=== PATIENT | female | born 1975 | race Caucasian/White ===

== ENCOUNTER 2023-05-24 08:31 | Emergency (ER) | payer SELFPAY ==
[2023-05-24] MEDS ORDERED: Ketorolac Tromethamine 30 MG/ML VIAL ONE (09:01)
[2023-05-24] MEDS ORDERED: Ondansetron PF 4 MG/2 ML Vial ONE (09:01)
[2023-05-24 09:40] LABS: #Basophils 0.1 10x3/uL (0.0-0.2); #Monocytes 1.6 10x3/uL (0.0-1.1); #Neutrophils 18.2 10x3/uL (1.5-8.4); %Basophils 0.4 % (0.0-2.0); %Monocytes 7.6 % (0.0-10.0); %Neutrophils 86.4 % (40.0-75.0); Hematocrit 42.7 % (34.9-44.5); Hemoglobin 14.5 g/dL (12.0-15.5); Mean Corpuscular Hemoglobin 33.2 pg (27.0-33.0); Mean Corpuscular Volume 97.7 fl (81.6-98.3); Mean Platelet Volume 9.6 fl (7.4-10.4); Platelet Count 295 10x3/uL (150-450); RBC Distribution Width 12.1 % (11.5-14.5); Red Blood Cell (RBC) Count 4.37 10x6/uL (3.90-5.03)
[2023-05-24 09:52] LABS: ALT (SGPT) 150 U/L (8-55); AST (SGOT) 109 U/L (5-34); Albumin 4.1 g/dL (3.5-5.0); Alkaline Phosphatase 147 U/L (40-110); Anion Gap 19 mmol/L (10-20); BUN (Urea Nitrogen) 7 mg/dL (7.0-18.7); Bilirubin, Total 0.7 mg/dL (0.2-1.2); Calc. Creatinine Clearance 0 mL/min (70-130); Calcium 9.5 mg/dL (7.8-10.44); Carbon Dioxide 23 mmol/L (22-29); Chloride 96 mmol/L (98-107); Estimated GFR 98; Globulin 3.5 g/dL (2.4-3.5); Glucose 99 mg/dL (70-105); Lipase 4 U/L (8-78); Potassium 2.9 mmol/L (3.5-5.1); Protein, Total 7.6 g/dL (6.0-8.3); Sodium 135 mmol/L (136-145)
[2023-05-24 10:00] LABS: BHCG - Serum Negative (NEGATIVE); Pregs Control Background? CLEAR/WHITE (CLR/WHITE); Pregs Control Bar Appear? YES (CONTROL BAR)
[2023-05-24 10:11] LABS: Bilirubin Neg (Negative); Blood, Urine 250 (Negative); Clarity Slightly Cloudy (Clear); Glucose, Urine (Dipstick) Normal (Negative); Ketone, Urine 50 mg/dL (Negative); Leukocyte 500 (Negative); Nitrite Positive (Negative); Protein, Urine (Dipstick) 30 mg/dl (Neg-Trace); Specific Gravity, Urine 1.005 (1.005-1.030)
[2023-05-24 10:33] LABS: Bacteria/HPF 4+ HPF (None Seen); CAUTI Indications for Culture Pelvic or flank pain; Mucous/LPF 1+ LPF (<2+); RBC/HPF 0-3 HPF (0-3); Squamous Epithelial 0-3 HPF (0-3); Urine Culture Reflex Yes Yes; WBC/HPF 21-50 HPF (0-3)
[2023-05-24] MEDS ORDERED: cefTRIAXone (ROCEPHIN) 2 GM VIAL ONE (10:39)
== END 2023-05-24 11:57 | disposition home or self-care (01) ==
LOC: CSHERS 08:31
DX: N10 Acute pyelonephritis (principal); I10 Essential (primary) hypertension; F17.210 Nicotine dependence, cigarettes, uncomplicated
CPT/HCPCS: 36415; 74176; 80053; 81001; 83605; 83690; 84703; 85025; 87077; 87086; 87186; 96374; 96375; J0696; J1885; J2405

== ENCOUNTER 2025-09-12 17:24 | Emergency (ER) | payer OTHER ==
[~2025-09-12 17:24] MED LIST: Iopamidol 370 76% 100 ML VIAL ONE
[2025-09-12 18:31] LABS: BHCG - Serum Negative (NEGATIVE); Pregs Control Background? CLEAR/WHITE (CLR/WHITE); Pregs Control Bar Appear? YES (CONTROL BAR)
[2025-09-12] MEDS ORDERED: Lidocaine Viscous Sol 2% 15 ml UD Cup ONE (18:31)
[2025-09-12] MEDS ORDERED: Dexamethasone 10 MG/ML VIAL ONE (18:31)
[2025-09-12 18:32] LABS: #Basophils Less than 0.03 10x3/uL (0.0-0.2); #Eosinophils 0.04 10x3/uL (0.0-0.5); #Monocytes 0.65 10x3/uL (0.0-1.1); #Neutrophils 6.30 10x3/uL (1.5-8.4); %Basophils 0.2 % (0.0-2.0); %Eosinophils 0.5 % (0.0-6.0); %Lymphocytes 16.6 % (18.0-47.0); %Monocytes 7.7 % (0.0-10.0); %Neutrophils 74.8 % (40.0-75.0); Hematocrit 38.2 % (34.9-44.5); Hemoglobin 13.1 g/dL (12.0-15.5); Mean Corpuscular Hemoglobin 31.6 pg (27.0-33.0); Mean Corpuscular Volume 92.0 fL (81.6-98.3); Platelet Count 339 10x3/uL (150-450); Red Blood Cell (RBC) Count 4.15 10x6/uL (3.90-5.03); White Blood Cell (WBC) Count 8.43 10x3/uL (3.5-10.5)
[2025-09-12 18:37] LABS: ALT (SGPT) 64 U/L (Less than 34); AST (SGOT) 68 U/L (11-34); Albumin 4.4 g/dL (3.1-4.5); Alkaline Phosphatase 114 U/L (40-110); Anion Gap 15 mmol/L (10-20); BUN (Urea Nitrogen) 18 mg/dL (7.0-18.7); Bilirubin, Total 0.5 mg/dL (0.3-1.2); Calc. Creatinine Clearance 0 mL/min (70-130); Calcium 9.9 mg/dL (7.8-10.44); Carbon Dioxide 23 mmol/L (22-29); Chloride 104 mmol/L (98-107); Globulin 3.5 g/dL (2.4-3.5); Glucose 117 mg/dL (70-105); Potassium 3.8 mmol/L (3.5-5.1); Sodium 138 mmol/L (136-145)
[2025-09-12] MEDS ORDERED: Ketorolac Tromethamine 30 MG (1 mL) VIAL ONE (18:49)
== END 2025-09-12 20:28 | disposition home or self-care (01) ==
LOC: CSHERS 17:24
DX: K04.7 Periapical abscess without sinus (principal); K12.2 Cellulitis and abscess of mouth; I10 Essential (primary) hypertension; F17.290 Nicotine dependence, other tobacco product, uncomplicated
CPT/HCPCS: 41800; 70491; 80053; 84703; 85025; 93005; 96365; 96366; 96375; J0295; J1100; J1885; Q9967